=== PATIENT | female | born 1995 | race Two or more races ===

== ENCOUNTER 2023-05-11 22:21 | Emergency (ER) | payer SELFPAY ==
[2023-05-11 22:53] VITALS: BP 138/90; PULSE 106; RESP 18; TEMP 36.8; O2SAT 98; BMI 28.3
--- NOTE | 2023-05-11 23:03 | ED.GENADUL1 ---
HPI - General Adult General Chief complaint: Upper Respiratory Infection Stated complaint: ear pain Time Seen by Provider: 05/11/23 22:57 Source: patient Mode of arrival: walk-in History of Present Illness HPI narrative: 27-year-old female presents for a two day history of right ear pain. No trauma or drainage. No symptoms in her left ear and no sore throat. 4 days ago she developed some left upper quadrant pain which is now gone and it went away two days ago. No trauma or fever or vomiting or constipation. Related Data Home Medications Medication Instructions Recorded Confirmed levonorgestrel 0.15 mg-ethinyl 05/11/23 estradiol 30 mcg tablets,3 mos pack(91) (William) Previous Rx's Medication Instructions Recorded ibuprofen 800 mg tablet 800 mg PO Q8H PRN pain #20 tabs 05/11/23 sulfamethoxazole 800 1 tab PO BID 10 days #20 tabs 05/11/23 mg-trimethoprim 160 mg tablet (Bactrim DS) Allergies Allergy/AdvReac Type Severity Reaction Status Date / Time Penicillins Allergy Verified 05/11/23 22:58 Review of Systems ROS Narrative A ten point review of systems is negative except as noted above. PFSH PFSH Social History Smoking status: Never smoker Exam Narrative Exam Narrative: Nurses note and vital signs reviewed and patient is not hypoxic. General: The patient appears well and in no apparent distress. Patient is resting comfortably on cart. Skin: Warm, dry, no pallor noted. There is no rash noted. Head: Normocephalic, atraumatic Eye: Normal conjunctiva, no drainage Ears, Nose, Mouth, and Throat: oral mucosa is moist. Nares patent. no pharyngeal erythema. The left tympanic membrane an extra canal are normal. The right external canal is normal but there is some mild erythema at the superior aspect of the right tympanic membrane. Cardiovascular: Regular Rate and Rhythm Respiratory: Patient is in no distress, no accessory muscle use, lungs are clear to auscultation, no wheezing, rales or rhonchi Back: non-tender GI: soft and nontender Musculoskeletal: The patient has no evidence of calf tenderness, no pitting edema, symmetrical pulses noted bilaterally Neurological: A&O, normal speech Psychiatric: Cooperative Constitutional Vital Signs, click to edit/add: Last Vital Signs Temp 98.3 F 05/11/23 22:53 Pulse 106 H 05/11/23 22:53 Resp 18 05/11/23 22:53 BP 138/90 05/11/23 22:53 Pulse Ox 98 05/11/23 22:53 O2 Del Method Room Air 05/11/23 22:53 Course Vital Signs Vital signs: Vital Signs Temperature 98.3 F 05/11/23 22:53 Pulse Rate 106 H 05/11/23 22:53 Respiratory Rate 18 05/11/23 22:53 Blood Pressure 138/90 05/11/23 22:53 Pulse Oximetry 98 05/11/23 22:53 Oxygen Delivery Method Room Air 05/11/23 22:53 Temperature 98.3 F 05/11/23 22:53 Pulse Rate 106 H 05/11/23 22:53 Respiratory Rate 18 05/11/23 22:53 Blood Pressure 138/90 05/11/23 22:53 Pulse Oximetry 98 05/11/23 22:53 Oxygen Delivery Method Room Air 05/11/23 22:53 Medical Decision Making MDM Narrative Medical decision making narrative: my clinical impression is that the patient has otitis media. Treatment diagnosis and follow-up were discussed with the patient. Differential Diagnosis Differential Diagnosis: otitis media, otitis externa, upper respiratory infection Discharge Plan Discharge Chief Complaint: Upper Respiratory Infection Clinical Impression: Otitis media Patient Disposition: Home, Self-Care Time of Disposition Decision: 23:02 Condition: Good Mode of Transportation: Private Vehicle Prescriptions / Home Meds: New ibuprofen 800 mg tablet 800 mg PO Q8H PRN (Reason: pain) Qty: 20 0RF sulfamethoxazole-trimethoprim [Bactrim DS] 800-160 mg tablet 1 tab PO BID 10 Days Qty: 20 0RF No Action levonorgestrel-ethinyl estrad [Jolessa] 0.15 mg-30 mcg (91) tablets,dose pack,3 month Instructions: Ear Infection (ED) Stand Alone Forms: Portal Instructions Referrals: Physician,Non-Staff, MD [Primary Care Provider] - 1 week
[2023-05-11] MEDS: IBUPROFEN 400 MG TABLET 800 MG PO (23:24)
[2023-05-11] MEDS: SULFAMETHOXAZOLE/TRIMETHOPRIM 800-160 MG TABLET 1 TAB PO (23:24)
[2023-05-11 23:27] VITALS: BP 135/85; PULSE 100; RESP 16; O2SAT 100
== END 2023-05-11 23:10 | disposition home or self-care (01) ==
PROVIDERS: Emergency Provider Emergency Medicine
DX: H66.91 Otitis media, unspecified, right ear (principal); Z79.3 Long term (current) use of hormonal contraceptives
CPT/HCPCS: 99283

== ENCOUNTER 2024-04-25 17:02 | Emergency (ER) | payer MEDICAID, SELFPAY ==
[2024-04-25 17:13] VITALS: BP 116/83; PULSE 80; TEMP 37.2; O2SAT 100; BMI 33.1
--- OUTSIDE RECORDS SUMMARY | 2024-04-25 17:20 | XMS_ITS | CCD ---
Author Organization [facility] Care Team Providers Care Degreasing Solution Mixer Name Role Phone LE, CALLY Unavailable Unavailable LE, CALLY Unavailable Unavailable MISC, DOCTOR Unavailable Unavailable LE, CALLY Unavailable Unavailable Services, [facility] Primary Care Provider WINTRE VERDUGO Attending Unavailable SERVICES, [facility] Care Unapito ilable ARIANNE FARFAN Attending Unavailable SERVICES, [facility] Care Unava ilable STARR PENDLETON Attending Unavailable SERVICES, [facility] Unava ilable WINTER VERDUGO Referring Unavailable SERVICES, [facility] Care Unapito ilable STARR PENDLETON Referring Unavailable SERVICES, [facility] Primary [facility] Unava ilable Unavailable Primary Care Provider Unavailabl e WINTER VERDUGO Referring Unavailable SERVICES, [facility] Care Unava ilable ARIANNE FARFAN Attending Unavailable ARIANNE FARFAN Referring Unavailable SERVICES, [facility] Primary Care Unava ilable ARIANNE FARFAN Referring Unavailable RADHA WRIGHT Referring Unavailabl e NONE, NONE Primary Care Unavailable None, None Primary Care Provider Unavailabl e Allergies Allergy Classification Reported Allergen(s) Allergy Type Date of Onset Reaction(s) Facility (4 sources) Penicillins; Translations: [PENICILLINS] Drug allergy (disorder) 6 [facility] (7 sources) Penicillins Propensity to adverse reactions to drug 8 Rash [facility] (10 sources) valACYclovir; Translations: [VALACYCLOVIR] Drug Allergy 3 Rash [facility] Medications Current Medications Medication Drug Class(es) Dates Sig (Normalized) Sig (Original) acyclovir 0.05 mg/mg topical ointment (6 sources) Herpesvirus Nucleoside Analog DNA Polymerase Inhibitor, Herpes Simplex Virus Nucleoside Analog DNA Polymerase Inhibitor, Herpes Zoster Virus Nucleoside Analog DNA Polymerase Inhibitor Start: 08-25-2022 acyclovir (ZOVIRAX) 5 % ointment Indications: HSV (herpes simplex virus) anogenital infection Apply 1 Application topically 6 (six) times a day. 30 g 08/25/2022 Active Ethinyl Estradiol / Levonorgestrel (3 sources) Progestin, Estrogen, Progestin-containi ng Intrauterine Device Start: 05-16-2023 take 1 tablet by mouth once in the morning levonorgestreL-eth inyl estrad (JOLESSA) 0.15 mg-30 mcg (91) per tablet Indications: Contraceptive use education , Encounter for surveillance of contraceptive pills TAKE 1 TABLET BY MOUTH IN THE MORNING 91 tablet 3 05/16/2023 Active Start: 04-24-2023 End: 05-16-2023 take 1 tablet by mouth once in the morning levonorgestreL-ethinyl estrad (JOLESSA) 0.15 mg-30 mcg (91) per tablet Indications: Contraceptive use education , Encounter for surveillance of contraceptive pills TAKE 1 TABLET BY MOUTH IN THE MORNING 91 tablet 0 04/24/2023 05/16/2023 Discontinued (Reorder) fluconazole 150 mg oral tablet (1 source) Azole Antifungal Start: 05-17-2023 End: 05-17-2023 take 1 tablet by mouth once fluconazole (DIFLUCAN) 150 mg tablet Indications: Candidiasis of female genitalia Take 1 tablet (150 mg total) by mouth once for 1 dose. 1 tablet 0 05/17/2023 05/17/2023 Active nystatin [id number] unt/ml / triamcinolone acetonide 1 mg/ml topical cream (2 sources) Polyene Antifungal, Corticosteroid Start: 05-16-2023 nystatin-triamcino lone (MYCOLOG II) cream Indications: Candidosis of skin Apply 1 Application topically in the morning and 1 Application before bedtime. 30 g 0 05/16/2023 Active Vit-Fe Fumarate-FA ( 19 PO) (1 source) Vit-Fe Fumarate-FA ( 19 PO) Take by mouth Active Problems Active Problems Problem Classification Problem Date Documented Da te Episodic/Chronic Diabetes or abnormal glucose tolerance complicating ; childbirth; or the puerperium (4 sources) Impaired glucose tolerance in ; Translations: [Abnormal glucose complicating ] Onset: 03-15-2024 03-15-2024 Episodic Fever of unknown origin (1 source) Fever, unspecified; Translations: [FEVER UNSPECIFIED] Onset: 12-09-2017 Episodic Inflammatory diseases of female pelvic organs (1 source) Acute vaginitis; Translations: [ACUTE VAGINITIS] Onset: 12-09-2017 Episodic Menstrual disorders (2 sources) Amenorrhea, unspecified; Translations: [Amenorrhea] Onset: 03-25-2024 03-25-2024 Chronic Other complications of (4 sources) Maternal obesity complicating , childbirth and the puerperium, antepartum; Translations: [Obesity complicating , unspecified trimester] Onset: 02-06-2024 02-06-2024 Chronic Other complications of (3 sources) Rubella non-immune; Translations: [Supervision of other high risk pregnancies, unspecified trimester] Onset: 03-15-2024 03-15-2024 Episodic Other complications of (3 sources) Varicella non-immune; Translations: [Supervision of other high risk pregnancies, unspecified trimester] Onset: 03-15-2024 03-15-2024 Episodic Other female genital disorders (4 sources) Abnormal uterine and vaginal bleeding, unspecified; Translations: [Other specified abnormal uterine and vaginal bleeding] Onset: 12-07-2017 Chronic Other and delivery including normal (12 sources) First trimester ; Translations: [Encounter for supervision of normal , unspecified, first trimester] Onset: 02-06-2024 03-12-2024 Episodic Residual codes; unclassified (1 source) 13 weeks gestation of ; Translations: [13 weeks gestation of ] Onset: 03-25-2024 Episodic Residual codes; unclassified (1 source) Gestation period, 13 weeks; Translations: [13 weeks gestation of ] 03-25-2024 Episodic Unclassified (1 source) Initial Visit Onset: 02-06-2024 Unclassified (1 source) Annual Exam Onset: 05-16-2023 Past or Other Problems Problem Classification Problem Date Documented Date Episodic/Chronic Contraceptive and procreative management (3 sources) Oral contraception; Translations: [Encounter for surveillance of contraceptive pills] Onset: 05-16-2023 05-16-2023 Episodic Immunizations and screening for infectious disease (5 sources) Patient encounter status; Translations: [Encounter for screening for infections with a predominantly sexual mode of transmission] Onset: 05-16-2023 05-16-2023 Episodic Mood disorders (6 sources) Mood disorders Onset: 05-16-2023 05-16-2023 Mycoses (3 sources) Candidiasis of skin; Translations: [Candidiasis of skin and nail] Onset: 05-16-2023 05-16-2023 Episodic Results Test Name Value Interpretation Reference Range Facility TYPE AND SCREENon 1 05-25-2023 ABO and Rh group Nom (Bld) Blood group A Rh(D) positive [facility] Blood group antibodies identified Nom Negative [facility] Type + Scrnon 03-25 Type + Scrn Negative Normal [facility] Comment on above: Performed By: #### P RTYS #### [facility] [address] [place] [address] Sash Finisher: Tee Mcdaniel MD ACUTE HEPATITIS PANELon 10-3 ANTI HCV W/PCR REFLX Non-Reactive Normal NRCT Pr [facility] Comment on above: Result Comment: If recent infection suspected, recommend repeat testing (>2 months). Sehjpq-px-sjogqv ratio is <0.80. Performed By: #### C BC, 1504-0, 37068-4, AHP, 06249-8, 22457-1, 81811-1, 16667-8 #### [facility] ([id number]) [address] [place] [address] HEPATITIS A IGM Non-Reactive Normal NRCT [facility] Comment on above: Performed By: #### C BC, 1504-0, 27389-6, AHP, 95065-8, 43032- 5, 89618-1, 61208-5 #### [facility] ([id number]) [address] [facility] [place] [address] HEPATITIS B CORE IGM Negative Normal NEG [facility] Comment on above: Performed By: #### C BC, 1504-0, 05037-2, AHP, 37086-5, 26371- 5, 19122-1, 10313-4 #### [facility] ([id number]) [address] [address] [place] [address] HEPATITIS B SURF AG Negative Normal NEG [facility] Comment on above: Performed By: #### C BC, 1504-0, 99367-3, AHP, 41307-8, 12383- 5, 07961-2, 30807-9 #### [facility] ([id number]) [address] [address] [place] [address] COMPLETE BLOOD COUNTon 03-14 Erythrocyte distribution width (RBC) [Ratio] 13.9 % Normal 11.5-15.0 [facility] Comment on above: Performed By: #### C BC, 1504-0, 14745-0, AHP, 39137-4, 42887- 5, 40736-2, 75737-8 #### [facility] ([id number]) [address] [address] [place] [address] Hematocrit (Bld) [Volume fraction] 39.8 % Normal 35-47 [facility] Comment on above: Performed By: #### C BC, 1504-0, 44966-4, AHP, 02497-6, 81898- 5, 75868-6, 65160-2 #### [facility] ([id number]) [address] [address] [place] [address] Hemoglobin (Bld) [Mass/Vol] 14.1 g/dL Normal 11.7-15.5 [facility] Comment on above: Performed By: #### C BC, 1504-0, 93909-8, AHP, 70572-4, 51315- 5, 36745-3, 66739-9 #### [facility] ([id number]) [address], [address] [place] [address] MCH (RBC) [Entitic mass] 33.0 pg Normal 27-34 [facility] Comment on above: Performed By: #### Ora THIBODEAUX, 1504-0, 66772-1, AHP, 44388-2, 28905- 5, 38774-6, 10715-7 #### [facility] ([id number]) [address], [address] [place] [address] MCHC (RBC) [Mass/Vol] 35.3 g/dL Normal 32-36 [facility] Comment on above: Performed By: #### Ora THIBODEAUX, 1504-0, 50978-6, AHP, 80290-4, 19617- 5, 91760-7, 67774-7 #### [facility] ([id number]) [address], [address] [place] [address] MCV (RBC) [Entitic vol] 94 fL Normal 80-100 [facility] Comment on above: Performed By: #### Ora THIBODEAUX, 1504-0, 80040-8, AHP, 95624-7, 77045- 5, 72019-9, 68292-6 #### [facility] ([id number]) [address], [address] [place] [address] Platelet mean volume (Bld) [Entitic vol] 11.4 fL Normal 7-12 [facility] Comment on above: Performed By: #### Ora THIBODEAUX, 1504-0, 64768-4, AHP, 36770-4, 72458- 5, 64979-9, 02602-3 #### [facility] ([id number]) [address], [address] [place] [address] Platelets (Bld) [#/Vol] 168 10*3/uL Normal 150-450 [facility] Comment on above: Performed By: #### Ora BC, 1504-0, 76543-0, AHP, 66316-3, 69863- 5, 13414-6, 88873-2 #### [facility] ([id number]) [address], [address] [place] [address] RBC COUNT 4.26 X10E12/L Normal 3.80-5.20 [facility] Comment on above: Performed By: #### C BC, 1504-0, 82685-5, AHP, 04956-6, 87370- 5, 41219-6, 17770-3 #### [facility] ([id number]) [address], [address] [place] [address] WBC (Bld) [#/Vol] 9.9 10*3/uL Normal 4.0-11.0 [facility] Comment on above: Performed By: #### C BC, 1504-0, 98915-0, AHP, 23216-4, 68834- 5, 89396-6, 03794-6 #### [facility] ([id number]) [address], [address] [place], [place] [address] DRUG SCREEN, URINEon 024 AMPHETAMINE/METHAMP Negative Normal NEG [facility] Comment on above: Result Comment: AMPH /METH screening cut off = 1000 ng/mL Performed By: #### D LEAHY ####[facility] ([id number])[address] [address] [place] [address] BARBITURATES Negative Normal NEG [facility] Comment on above: Result Comment: Carola iturates screening cut off value = 200 ng/mL Performed By: #### D LEAHY ####[facility] ([id number])[address], [address] [place] [address] BENZODIAZEPINES Negative Normal NEG [facility] Comment on above: Result Comment: Greg odiazepines screening cut off value = 200 ng/mL Performed By: #### D LEAHY ####[facility] ([id number])[address], [address] [place] [address] CANNABINOIDS Negative Normal NEG [facility] Comment on above: Result Comment: David abinoids/THC screening cut off value = 50 ng/mL Performed By: #### D LEAHY ####[facility] ([id number])[address], [address] [address] COCAINE METABOLITE Negative Normal NEG [facility] Comment on above: Result Comment: Coca ine screening cut off value = 300 ng/mL Performed By: #### D LEAHY ####[facility] ([id number])[address], [address], [place] [address] ECSTASY Negative Normal NEG [facility] Comment on above: Result Comment: Ecst asy screening cut off value = 500 ng/mL This report is intended for use in clinical monitoring or management of patients. Performed By: #### D LEAHY ####[facility] ([id number])[address], [address], [place] [address] METHADONE Negative Normal [facility] Comment on above: Result Comment: Meth adone screening cut off value = 300 ng/mL. Performed By: #### D LEAHY ####[facility] ([id number])[address], [address], [place] [address] OPIATES Negative Normal NEG [facility] Comment on above: Result Comment: Opia jose screening cut off value = 300 ng/mL NOTE: This test is used for the detection of codeine, hydrocodone (>1000 ng/mL), morphine and hydromorphone (>900 ng/mL) in urine. Performed By: #### D LEAHY ####[facility] ([id number])[address], [address], [place] [address] OXYCODONE Negative Normal NEG [facility] Comment on above: Result Comment: Oxyc odone screening cut off value = 300 ng/mL NOTE: This test is used for the detection of oxycodone and oxymorphone in urine. Performed By: #### D LEAHY ####[facility] ([id number])[address], [address] [address] PHENCYCLIDINE Negative Normal NEG [facility] Comment on above: Result Comment: Phen cyclidine screening cut off value = 25 ng/mL Performed By: #### D LEAHY ####[facility] ([id number])[address], [place] [address] Glucose 1 Hr post 50 g gluco se PO [Mass/Vol]on 03-14-2024 GLU 1H POST 50G LOAD 136 mg/dL Normal 65-139 [facility] Comment on above: Performed By: #### C CARLOS EDUARDO, 1504-0, 85933-6, AHP, 20731-3, 23423- 5, 78153-1, 67775-9 #### [facility] ([id number]) [address] [facility], [address] [place] [address] HCG.beta subunit IA 3rd IS Q non 03-14-2024 [place] [address] m[IU]/mL Normal P [facility] Comment on above: Result Comment: NEW REFERENCE RANGE WEEKS (SINCE LMP) MIU/mL 3 WEEKS 5 - 50 4 WEEKS 5 - 426 5 WEEKS 18 - 7,340 6 WEEKS 1,080 - 56,500 7-8 WEEKS 7,650 - 229,000 9-12 WEEKS 25,700 - 288,000 13-16 WEEKS 13,300 - 254,000 17-24 WEEKS 4,060 - 165,400 25-40 WEEKS 3,640 - 117,000 MALES AND NON- FEMALES - <5 MIU/mL This test has been FDA approved for use in only. Elevated levels are not necessarily diagnostic for trophoblastic or nontrophoblastic neoplasms. Performed By: #### C BC, 1504-0, 17649-8, AHP, 50403-6, 67643-9, 13964-4, 14434-5 #### [facility] ([id number]) [address] [place] [address] HIV 1+2 Ab+HIV1 p24 Ag IA Ql on 03-14-2024 HIV 1 and 2 Ab/Ag Screen Non-Reactive Normal NRCT [facility] Comment on above: Result Comment: This information has been disclosed to you from confidential records protected from disclosure by state law. You shall make no further disclosure of this information without the specific, written and informed release of the individual to whom it pertains, or as otherwise permitted by state law. A general authorization for the release of medical or other information is not sufficient for the purpose of the release of HIV test results or diagnoses. Performed By: #### Ora , 1504-0, 53090-9, [facility], 97529-8, 96226-9, 49412-8, 23541-1 #### [facility] ([id number]) [address] [place] [address], [address] [place] [address] Rubella virus Ab Ql (S)on RUBELLA IMMUNE IgG 0.5 AI Normal [facility] Comment on above: Result Comment: Interpretation-------- <0.8 NEGATIVE-considered Not Immune 0.8-0.9 EQUIVOCAL-consider retesting with new specimen >0.9 POSITIVE-considered Immune Performed By: #### C , 1504-0, 80228-5, [facility], 46195-6, 15578-0, 09687-4, 84717-9 #### [facility] ([id number]) [address] [place] [address], [address] [place] [address] T. pallidum IgG+IgM IA Ql (S )on 03-14-2024 Syphilis Total <0.2 Normal 0.0-0.8 [facility] Comment on above: Result Comment: NON REACTIVE No serologic evidence of infection to Treponema pallidum (syphilis). Repeat testing may be considered in patients with suspected acute or primary syphilis in 2 to 4 weeks. Performed By: #### C , 1504-0, 91156-0, AHP, 26381-2, 40030-4, 80573-5, 12182-6 #### [facility] ([id number]) [address], [address] [place] [address] URINALYSISon 03-14-2024 Bilirubin Ql (U) Negative Normal NEG [facility] Comment on above: Performed By: #### U A ####[facility] ([id number])[address], [address] [place] [address] BLOOD/HGB Negative Normal NEG [facility] Comment on above: Performed By: #### U A ####[facility] ([id number])[address] [address] [place] [address] Color (U) YELLOW Normal YELLOW [facility] Comment on above: Performed By: #### U A ####[facility] ([id number])[address] [address] [place] [address] Glucose Ql (U) 1000 mg/dL Abnormal NEG [facility] Comment on above: Performed By: #### U A ####[facility] ([id number])[address] [address] [place] [address] Ketones Ql (U) 20 mg/dL Abnormal NEG [facility] Comment on above: Performed By: #### U A ####[facility] ([id number])[address] [address] [place] [address] Leukocyte esterase Test strip Ql (U) Negative Normal NEG [facility] Comment on above: Result Comment: HIGH CONCENTRATIONS OF GLUCOSE MAY DECREASE THE REACTIVITY OF THE DIPSTICK LEUKOCYTE TEST PAD. Performed By: #### U A ####[facility] ([id number])[address], [address] [place] [address] MUCOUS PRESENT Abnormal NONE [facility] Comment on above: Performed By: #### U A ####[facility] ([id number])[address] [address] [place] [address] Nitrite Ql (U) Negative Normal NEG [facility] Comment on above: Performed By: #### U A ####[facility] ([id number])[address] [address] [place] [address] pH (U) 7.0 [pH] Normal 5.0-8.5 [facility] Comment on above: Performed By: #### U A ####[facility] ([id number])[address] [facility] [address], [place] [address] Protein Ql (U) Trace Abnormal NEG [facility] Comment on above: Performed By: #### U A ####[facility] ([id number])[address] [address] [place] [address], [place] [address] R.B.CELLS 1 /hpf Normal 0-5 [facility] Comment on above: Performed By: #### U A ####[facility] ([id number])[address] [address], [place] [address] Specific gravity (U) [Rel density] 1.027 Normal 1.003-1.035 [facility] Comment on above: Performed By: #### U A ####[facility] ([id number])[address] [address], [place] [address] SQUAMOUS EPITHELIUM 1 /hpf Normal 0-5 [facility] Comment on above: Performed By: #### U A ####[facility] ([id number])[address] [address] [place] [address] TURBIDITY CLEAR Normal CLEAR [facility] Comment on above: Performed By: #### U A ####[facility] ([id number])[address] [address] Urobilinogen (U) [Mass/Vol] mg/dL Normal <1.1 [facility] Comment on above: Performed By: #### U A ####[facility] ([id number])[address] [address] W.B.CELLS 1 /hpf Normal 0-5 [facility] Comment on above: Performed By: #### U A ####[facility] ([id number])[address] [address] URINE CULTUREon 03-14-2024 Bacteria identified Cx Nom (U) CULTURE RESULTS <10,000 ORGANISMS/ML NORMAL URO GENITAL SAY Normal [facility] Comment on above: Performed By: #### 6 30-4 ####[facility] ([id number])[facility] [address] [address] VZV IgG IA Ql (S)on 03-14-20 24 VARICELLA IgG 0.3 AI Normal <0.9 [facility] Comment on above: Result Comment: Interpretation-------- <0.9 Negative 0.9 - 1.0 Equivocal >1.0 Positive Performed By: #### C , 1504-0, 39117-8, [facility], 54328-7, 92588-3, 82816-7, 98900-8 ####[facility] ([id number])[address] [address] CHLAMYDIA/GC BY PCRon 2023 CHLAMYDIA/GC BY PCR SPECIMEN SOURCE CERVIX CHLAMYDIA DNA(PCR) Negative (qualifier value) Chlamydia trachomatis not detected by nucleic acid amplification. This does not exclude the possibility of infection because results are dependent on adequate specimen collection. GONORRHOEAE DNA(PCR) Negative (qualifier value) Neisseria gonorrhoeae not detected by nucleic acid amplification. This does not exclude the possibility of infection because results are dependent on adequate specimen collection. Normal [facility] Comment on above: Performed By: #### C GS #### [facility] ([id number]) [address] [facility], [address] [place] [address] US PREG LESS THAN 14 WKS WIT H TRANSVAGINALon 03-01-2024 US PREG LESS THAN 14 WKS WITH TRANSVAGINAL US PREG LESS THAN 14 WKS WITH TRANSVAGINAL US PREG LESS THAN 14 WKS WITH TRANSVAGINAL: 03/01/2024 9:58 AM Clinical: Check dates and viability. Real-time transabdominal and transvaginal sonography pelvis performed.. No comparison. There is a twin intrauterine with a thin membrane with 2 yolk sacs and 2 embryonic poles. Fetus a: Foristell-rump length of 2.7 cm corresponds to 9 week 4 day gestation. Cardiac activity 1 85 bpm. Fetus B: Foristell-rump length of 3.1 cm, 10 weeks 0 day. Cardiac activity 1 68 bpm. Amount amniotic fluid is normal. Placenta not well seen due to early gestational age. Maternal ovaries are unremarkable. No cul-de-sac fluid seen. Impression: * Twin intrauterine 9 week 4 day at 10 week 0 day gestation with cardiac activity and thin membrane. Finalized by Reilly Barrera MD on 03/01/2024 10:50 AM Normal [facility] CHLAMYDIA/GC PCR, FLon 05-16 CHLAMYDIA/GC PCR, FL SPECIMEN SOURCE ThinPrep CHLAMYDIA DNA(PCR) Negative (qualifier value) Chlamydia trachomatis not detected by nucleic acid amplification. This does not exclude the possibility of infection because results are dependent on adequate specimen collection. GONORRHOEAE DNA(PCR) Negative (qualifier value) Neisseria gonorrhoeae not detected by nucleic acid amplification. This does not exclude the possibility of infection because results are dependent on adequate specimen collection. Normal [facility] Comment on above: Performed By: #### C GT #### [facility] ([id number]) [address] [facility] FIRST FLOOR [place], [place] [address] [place] [address] LAB ([id number]) [address] [place] [address], [address] [place] [address] Cytologyon 05-16-2023 Cytology Normal [facility] Comment on above: Result Comment: [facility] [address] [place] [address] Gynecologic Cytology Consultation Patient Name:MELI ALVAREZ:1995 (Age: 27)Gender:FTaken:4Reported:4Physician(s):Winter Verdugo DO ([phone])Copy To: Rec. #:[id number]: #[id number] Final Cytologic Interpretation ThinPrep Pap Test (Cervical): Satisfactory for evaluation. A transformazion zone component is not identified via imaging-assisted review, using [employer] Thin Prep Imaging System, within 22 microscopic sampson of vew. NEGATIVE FOR INTRAEPITHELIAL LESION OR MALIGNANCY. gb/05/20/2023 Interpretation performed at [facility], [address] [place] [address], License number: [id number]. Electronically Signed Out By Simba MALDONADO (ASCP) Date of Last Menstrual Period: 04/14/23 Other Clinical Conditions: Oral contraceptive Z01.419 Technical Service Specialist exam wo/abn findings Z11.3 Encntr screen for infections w sexl mode of transmiss Source of Specimen ThinPrep Pap Test (Cervical) Thin Prep Pap (MULTIMEDIA SERVICES MANAGER) Fee Code(s): G0145 VAGINITIS PANEL PCRon 2023 VAGINITIS PANEL PCR BACT. VAGINOSIS DNA Not detected (qualifier value) Qualitative results are reported based on detection and quantitation of targeted organism markers which include: Lactobacillus spp. (L. crispatus and L. jensenii), Gardnerella vaginalis, Atopobium vaginae, Bacterial Vaginosis Associated Bacteria-2 (BVAB-2) and Megasphaera-1 JOHANA SPECIES DNA Detected (qualifier value) Johana species result based on detection of one or more of the following species: C. albicans, C. tropicalis, C. parapsilosis or C. dubliniensis JOHANA KRUSEI DNA Not detected (qualifier value) No Johana krusei detected JOHANA GLABRATA DNA Not detected (qualifier value) No Johana glabrata detected TRICHOMONAS VAG DNA Not detected (qualifier value) No Trichomonas vaginalis detected NOTE BD MAX Vaginal Panel has not been evaluated for patients under 18 years old. Results for these patients should be reviewed and assessed in accordance with clinical presentation to determine patient diagnosis. Normal [facility] Comment on above: Performed By: #### V PPCR #### [facility] ([id number]) [address] [facility] [address] [place] [address] CHLAMYDIA/GONOCOCCUS ANNE MARIE W/C ONF. (SWAB/Uon 12-10-2017 Chlamydia Trach ANNE MARIE Negative Normal Negative [facility] Comment on above: Performed By: #### C T/NGNA ####[facility] Iulwsvwvbm6033 [address] [place] N. Gonorrhoeae ANNE MARIE Negative Normal Negative [facility] Comment on above: Performed By: #### C T/NGNA ####[facility] Sgyqdemxkr1384 [address] [place] ER URINE PROFILEon 8 BILIRUBIN Negative Normal NEGATIVE [facility] Comment on above: Performed By: #### LINDA AHMADI ####[facility] Vytymlofan1908 [address] [place] BLOOD MODERATE Normal NEGATIVE [facility] Comment on above: Performed By: #### LINDA AHMADI ####[facility] Stulqabxzy1823 [address] [place] CLARITY CLEAR Normal [facility] Comment on above: Performed By: #### LINDA AHMADI ####[facility] Kjruqghkpd7045 [address] [place] COLOR LT. YELLOW Normal YELLOW [facility] Comment on above: Performed By: #### LINDA AHMADI ####[facility] Evcwuulngq7210 [address] [place] ERUAHD A micrscopic examination will be performed if indicated. Normal [facility] Comment on above: Performed By: #### LINDA AHMADI ####[facility] Bnjnykqoed5272 [address] [place] GLUCOSE Negative Normal NEGATIVE [facility] Comment on above: Performed By: #### MEGAN AHMADIRO ####[facility] Klbmqskauw3131 [address] [place] KETONES 15 mg/dl Normal NEGATIVE [facility] Comment on above: Performed By: #### MEGAN AHMADIRO ####[facility] Vhdclemriz5739 [address] [place] LEUKOCYTES Negative Normal NEGATIVE [facility] Comment on above: Performed By: #### MEGAN AHMADIRO ####[facility] Oiemzwxaku6227 [address] [place] NITRITE Negative Normal NEGATIVE [facility] Comment on above: Performed By: #### MEGAN AHMADIRO ####[facility] Nmoipswnci2092 [address] [place] pH 6.0 Normal 5-9 [facility] Comment on above: Performed By: #### MEGAN AHMADIRO ####[facility] Emlouepwkf3824 [address] [place] Protein mass conc Negative Normal [facility] Comment on above: Performed By: #### MEGAN AHMADIRO ####[facility] Hfmtmtrxus1028 [address] [place] SPEC GRAVITY 1.020 Normal 1.005-<=1.025 The [facility] Comment on above: Performed By: #### MEGAN AHMADIRO ####[facility] Qclwxxctuc8045 [address] [place] UR MICRO IND INDICATED Normal [facility] Comment on above: Performed By: #### MEGAN AHMADIRO ####[facility] Omsldukygc3057 [address] [place] UROBILINOGEN 0.2 EU/dl Normal [facility] Comment on above: Performed By: #### MEGAN AHMADIRO ####[facility] Rwxfooyscb7057 [place] [id number] URon 12-07-2017 , QUAL Negative Normal NEGATIVE [facility] Comment on above: Performed By: #### P REGU ####[facility] Hmrxouflfo4458 [place] [id number] URINE MICROSCOPIC ONLYon BACTERIA NONE SEEN Normal NONE SEEN The [facility] Comment on above: Performed By: #### MEGAN AHMADIRO ####[facility] Qrzglccens3002 [address] [place] CAST NONE SEEN Normal NONE SEEN The [facility] Comment on above: Performed By: #### MEGAN AHMADIRO ####[facility] Wsqnkcwnhs4145 [address] [place] CRYSTALS NONE SEEN Normal NONE SEEN The [facility] Comment on above: Performed By: #### MEGAN AHMADIRO ####[facility] Iwpmwhtxcx5545 [address] [place] CULTURE NOT INDICATED Normal [facility] Comment on above: Performed By: #### GABRIELA AHMADIICRO ####[facility] Aznlkocakv5811 [place] [id number] EPITHELIAL CELLS RARE Normal The [facility] Comment on above: Performed By: #### GABRIELA AHMADIICRO ####[facility] Fmoaedrxej1316 [place] [id number] INR Coag RelTime (Bld) NONE SEEN Normal 0-2 [facility] Comment on above: Performed By: #### MEGAN AHMADIRO ####[facility] Ffhtbnwgya8732 [place] [id number] MUCOUS NONE SEEN Normal NONE SEEN The [facility] Comment on above: Performed By: #### MEGAN AHMADIRO ####[facility] Ijwdepbcoz8853 [place] [id number] WBC NONE SEEN Normal NONE SEEN The [facility] Comment on above: Performed By: #### E LINDA FLOWERS ####[facility] P[address] [place] [address]Qubceg [place] WET PREPon 12-07-2017 CLUE CELLS SEEN Normal NONE SEEN The [facility] Comment on above: Performed By: #### W P ####[facility] Uzfrozhw[address] [place], [place] [address] [place] FUNGAL ELEMENTS NONE SEEN Normal NONE SEEN The [facility] Comment on above: Performed By: #### W P ####[facility] [address] [place] [address] [place] RBC Auto #/vol (Bld) NONE SEEN Normal NONE SEEN The [facility] Comment on above: Performed By: #### W P ####[facility] [address] [place], [place] [address] TRICHOMONAS NONE SEEN Normal NONE SEEN The [facility] Comment on above: Performed By: #### W P ####[facility] O[address]ss[address]dfja[address] [place], [place] [address] WBC Auto #/vol (Bld) NONE SEEN Normal NONE SEEN The [facility] Comment on above: Performed By: #### W P ####[facility] Y[address] [place], [place] [address] WET PREP BACTERIA NONE SEEN Normal NONE SEEN The [facility] Comment on above: Performed By: #### W P ####[facility] Y[address]fl[address] [place], [place] [address] Vital Signs Date Time Vital Sign Value Performing Clinician Faci lity 03-12-2024 09:42-0400 Body mass index (BMI) [Ratio] 33.37 kg/m2 Starr [place] MD Work Phone: [facility] 03-12-2024 09:42-0400 Body weight 85.46 kg Starr [place] MD Work Phone: [facility] 03-12-2024 09:42-0400 Diastolic blood pressure 64 mm[Hg] Starr [place] MD Work Phone: [employer] 03-12-2024 09:42-0400 Systolic blood pressure 118 mm[Hg] Starr [place] MD Work Phone: [employer] 05-16-2023 11:43-0500 Body height 160 cm Winter Verdugo DO Work Phone: [employer] 05-16-2023 11:43-0500 Body mass index (BMI) [Ratio] 32.1 kg/m2 Winter Verdugo DO Work Phone: [employer] 05-16-2023 11:43-0500 Body weight 82.19 kg Winter Verdugo DO Work Phone: [employer] 05-16-2023 11:43-0500 Diastolic blood pressure 80 mm[Hg] Winter Verdugo DO Work Phone: [employer] 05-16-2023 11:43-0500 Systolic blood pressure 116 mm[Hg] Winter Verdugo DO Work Phone: [employer] Encounters Encounter Date Encounter Type Care Provider Facility Start: 04-08-2024 End: 04-08-2024 Telephone encounter Arianne Farfan WELFARE VISITOR-VETERINARY PRACTICE MANAGER Work Phone: [facility] Start: 03-25-2024 End: 03-25-2024 ambulatory RADHA WRIGHT [facility] Start: 03-25-2024 End: 03-25-2024 Subsequent hospital visit by physician None None [facility] Comment on above: Encounter for superv ision of normal first in first trimester; Amenorrhea; 13 weeks gestation of Start: 03-21-2024 End: 03-21-2024 Telephone encounter Dona Hodge WELFARE VISITOR-VETERINARY PRACTICE MANAGER Work Phone: [facility] Start: 03-15-2024 End: 03-15-2024 Orders Only Dona Hodge WELFARE VISITOR-VETERINARY PRACTICE MANAGER Work Phone: [facility] Comment on above: Impaired glucose noé erance during (Primary Dx) Start: 03-14-2024 End: 03-14-2024 ambulatory [facility] Start: 03-12-2024 End: 03-12-2024 ambulatory [facility] Start: 03-12-2024 End: 03-12-2024 ambulatory [facility] Start: 03-12-2024 End: 03-12-2024 Office outpatient visit 25 minutes Starr [place] MD Work Phone: [facility] Comment on above: GA: 11w6d Start: 03-01-2024 End: 03-01-2024 [facility] Start: 02-06-2024 End: 02-06-2024 ambulatory [facility] Start: 05-17-2023 Orders Only Winter Verdugo DO Work Phone: [facility] Comment on above: Candidiasis of femal e genitalia (Primary Dx) Start: 05-16-2023 End: 05-16-2023 ambulatory [facility] Start: 05-16-2023 End: 05-16-2023 [facility] Start: 05-16-2023 End: 05-16-2023 Encounter for gynecological examination (general) (routine) without abnormal findings Winter Verdugo DO Work Phone: [facility] Start: 05-16-2023 End: 05-16-2023 Periodic preventive med est patient 18-39 yrs Winter Verdugo DO Work Phone: [facility] Comment on above: Cervical smear, as p art of routine gynecological examination (Primary Dx); Contraceptive use education; Encounter for surveillance of contraceptive pills; Screening for STD (sexually transmitted disease); Candidosis of skin Start: 05-16-2023 End: 05-16-2023 ambulatory [facility] Start: 05-16-2023 Encounter for gynecological examination (general) (routine) without abnormal findings WINTER VERDUGO [facility] Start: 12-07-2017 End: 12-07-2017 Patient encounter CALLY CONN Facility:H1 Procedures Date Procedure Procedure Detail Performing Clinician Start: 03-25-2024 Blood typing serologic abo Radha Wright WELFARE VISITOR - CNM Work Phone: Start: 05-16-2023 Adult depression scr eening assessment Winter Verdugo DO Work Phone: Start: 05-16-2023 Microscopic observat ion [Identifier] in Cervix by Cyto stain Starr [place] MD Work Phone: Start: 04-03-2020 Microscopic observat ion [Identifier] in Cervix by Cyto stain Winter Verdugo DO Work Phone: Plan of Treatment Date Care Activity Detail Author Start: 05-16-2026 Screening for malign ant neoplasm of cervix Pap Smear [facility] Start: 03-12-2025 Adult BMI Screening Adult BMI Screen ing [facility] Start: 03-12-2025 Tobacco Screening Tobacco Screening [facility] Start: 07-22-2024 End: 07-22-2024 Patient encounter procedure 07/22/2024 10:00 AM EDT Routine [address] [place] [address] Radha Wright, WELFARE VISITOR - CNM [address] [place] [address] [address] [place], [place] [id number] CHRISTIN 09/25 [facility] Comment on above: CHRISTIN 09/25 Start: 07-22-2024 End: 07-22-2024 Professional / ancillary services management 07/22/2024 9:00 AM EDT Ancillary Procedure [address] [place], [place] [id number] CHRISTIN 09/25 [facility] Comment on above: CHRISTIN 09/25 Start: 05-16-2024 End: 05-16-2024 Patient encounter procedure 05/16/2024 2:30 PM EST Routine [facility] [address] [place] [address] Radha Wright APRN - DEJUAN [address] [address] [address] [place] [address] OB 20 wk US TWINS [facility] Comment on above: OB 20 wk US TWINS Start: 05-16-2024 Adult BMI Screening Adult BMI Screen ing [facility] Start: 05-16-2024 Depression Screening Depression Scre ening [facility] Start: 05-16-2024 Tobacco Screening Tobacco Screening [facility] Start: 05-16-2024 End: 05-16-2024 Professional / ancillary services management 05/16/2024 1:00 PM EST Ancillary Procedure [facility] Part [address] [place] [address] OB 20 wk US TWINS [facility] Comment on above: OB 20 wk US TWINS Start: 04-15-2024 End: 04-15-2024 Patient encounter procedure 04/15/2024 1:40 PM EST Routine [facility] [address] [place] [address] Radha Wright, TYREE - DEJUAN [address] [place] [address] [address] [place] [address] OB/ US for FHT Twins. [facility] Comment on above: OB/ US for FHT Twins . Start: 04-15-2024 End: 04-15-2024 Professional / ancillary services management 04/15/2024 1:00 PM EST Ancillary Procedure [facility] [address] [place], [place] [id number] OB/ US for FHT Twins. [facility] Comment on above: OB/ US for FHT Twins . Start: 04-05-2024 End: 04-05-2024 Patient encounter procedure 04/05/2024 8:00 AM EST Routine [facility] [address] [place] [id number] Arianne Farfan, WELFARE VISITOR-VETERINARY PRACTICE MANAGER [address] [facility] [place] [address] [facility] Start: 01-14-2024 COVID-19 Vaccine ( season) COVID-19 Vaccine () [facility] Start: 01-14-2024 Influenza vaccination Influenza Vacc ine [facility] Start: 12-14-2023 Influenza vaccination Flu vaccine (# 1) [facility] Start: 05-16-2023 End: 05-16-2024 Cytopathology procedure, preparation of smear, genital source Pap Smear Pathology and Cytology Routine Cervical smear, as part of routine gynecological examination Expected: 05/16/2023 (Approximate), Expires: 05/16/2024 [facility] Work Phone: Comment on above: Expected: 05/16/2023 (Approximate), Expires: 05/16/2024 Start: 05-16-2023 End: 05-16-2024 Vaginitis Panel PCR Vaginitis Panel PCR Microbiology Routine Screening for STD (sexually transmitted disease) Expected: 05/16/2023 (Approximate), Expires: 05/16/2024 [facility] Comment on above: Expected: 05/16/2023 (Approximate), Expires: 05/16/2024 Start: 04-03-2023 Screening for malign ant neoplasm of cervix Pap Smear [facility] Start: 01-13-2023 Influenza vaccination Influenza Vacc ine [facility] Start: 03-30-2020 DTaP,Tdap and Td Vaccines (7 - Td or Tdap) DTaP,Tdap and Td Vaccines (7 - Td or Tdap) [facility] Start: 2018 Screening for malign ant neoplasm of cervix Pap smear [facility] Start: 2016 DTaP/Tdap/Td vaccine (1 - Tdap) DTaP/Tdap/Td vaccine (1 - Tdap) [facility] Start: 2016 Hepatitis B vaccine (1 of 3 - 19+ 3-dose series) Hepatitis B vaccine (1 of 3 - 19+ 3-dose series) [facility] Start: 11-22-2015 Adult BMI Follow Up Plan Adult BMI Follow Up Plan [facility] Start: 11-22-2015 Hepatitis C screening Hepatitis C sc reen [facility] Start: 2012 HIV screening HIV screen [facility] Start: 2012 HPV vaccine (1 - 3-d ose series) HPV vaccine (1 - 3-dose series) [facility] Start: 2010 Varicella vaccine (1 of 2 - 13+ 2-dose series) Varicella vaccine (1 of 2 - 13+ 2-dose series) [facility] Start: 2009 Depression Screen Depression Screen [facility] End: 03-15-2025 2nd hr Glucose Tolerance 100 gm load 2nd hr Glucose Tolerance 100 gm load Lab Routine Impaired glucose tolerance during 1 Occurrences starting 03/15/2024 until 03/15/2025 [facility] Comment on above: 1 Occurrences starti ng 03/15/2024 until 03/15/2025 End: 03-12-2025 Chlamydia/GC by PCR [facility] Chlamydia/GC by PCR [facility] Microbiology Routine care in first trimester 1 Occurrences starting 03/12/2024 until 03/12/2025 [facility]: Comment on above: 1 Occurrences starti ng 03/12/2024 until 03/12/2025 Chlamydia/GC by PCR [facility] Chlamydia/GC by PCR [facility] Microbiology Routine care in first trimester 03/12/2024 6:25 PM EDT [facility] End: 05-16-2024 Chlamydia/GC by PCR ThinPrep fluid Chlamydia/GC by PCR ThinPrep fluid Microbiology Routine Screening for STD (sexually transmitted disease) 1 Occurrences starting 05/16/2023 until 05/16/2024 [facility] Comment on above: 1 Occurrences starti ng 05/16/2023 until 05/16/2024 End: 03-15-2025 Glucose tolerance, 1 hour Glucose tolerance, 1 hour Lab Routine Impaired glucose tolerance during 1 Occurrences starting 03/15/2024 until 03/15/2025 [facility] on above: 1 Occurrences starti ng 03/15/2024 until 03/15/2025 End: 03-15-2025 Glucose tolerance, 3 hours Glucose tolerance, 3 hours Lab Routine Impaired glucose tolerance during 1 Occurrences starting 03/15/2024 until 03/15/2025 [facility] Comment on above: 1 Occurrences starti ng 03/15/2024 until 03/15/2025 End: 03-15-2025 Glucose, fasting Glucose, fasting Lab Routine Impaired glucose tolerance during 1 Occurrences starting 03/15/2024 until 03/15/2025 [employer] Work Phone: Comment on above: 1 Occurrences starti ng 03/15/2024 until 03/15/2025 Immunizations Immunization Date Immunization Notes Care Provider Polly veliz 03-16-2009 influenza virus vaccine, unspecified formulation Winter Verdugo DO Work Phone: [facility] Payers Date Payer Category Payer Medicaid [id number] 2024 Medicaid [id number] 1997 Unknown [id number] 2.16.8 [id number] 1997 Unknown [id number] 2.16.8 [id number] 1997 Unknown [id number] 2.16.84 [id number] 1997 Unknown [id number] 2.16.8 [id number] 1997 Unknown [id number] 2.16.8 [id number] 1997 Unknown [id number] 2.16.8 [id number] 1997 Unknown [id number] 2.16.8 [id number] 1959 Unknown [id number] Social History Date Type Detail Facility Start: 04-26-2022 End: 03-25-2024 Tobacco smoking status NHIS Never smoked tobacco [facility] Start: 04-26-2022 End: 03-25-2024 Tobacco use and exposure Smokeless tobacco non-user [facility] Start: 05-16-2023 Alcohol intake Current drinke r of alcohol (finding) [facility] Start: 06-25-2020 End: 05-16-2023 History of Social function [facility] Start: 06-25-2020 End: 05-16-2023 Tobacco use panel [facility] Adolescent depressio n screening assessment 9 [facility] Start: 04-26-2022 Alcohol Comment occasional [facility] Start: 1995 Sex Assigned At Not on file [facility] Start: 03-12-2024 End: 03-25-2024 Alcoholic beverage intake Ex-drinker (finding) [facility] Start: 01-03-2024 [facility] Start: 12-18-2014 Sex Female (finding) [facility] Clinical Notes 05-16-2023 to 04-08-2024 Telephone Encounter - Ashleigh Terrazas - 04/08/2024 4:24 PM ESTTelephone Encounter - Ashleigh Terrazas - 04/08/2024 4:24 PM ESTTelephone Encounter - Ashleigh Terrazas - 03/21/2024 1:33 PM EST Note Date & Type Note Facility 04-08-2024 Miscellaneous Notes Formattin g of this note might be different from the original. Called Pt to reschedule missed appt on 04/05/24. No answer, left VM. documented in this encounter [facility] 04-08-2024 Telephone encount er Note Called Pt to reschedule missed appt on 04/05/24. No answer, left VM. [facility] 03-21-2024 Miscellaneous Notes Formattin g of this note might be different from the original. Patient states she went to Urgent Care yesterday (03/20/24) due to feeling shaky and lightheaded. Per Joy Arce LPN, advised Patient this is normal & she does not need to be seen at this time. documented in this encounter [facility] 03-21-2024 Telephone encount er Note Patient states she went to Urgent Care yesterday (03/20/24) due to feeling shaky and lightheaded. Per Joy Arce LPN, advised Patient this is normal & she does not need to be seen at this time. [facility] 03-12-2024 History of Presen t illness Narrative History: Pt is 11w6d. This is her initial OB visit and is with twins. 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 No overview and plan has been documented for this . Physical exam: BP 118/64 Wt 85.5 kg (188 lb 6.4 oz) LMP 12/20/2023 Comment: Every 3 months BMI 33.37 kg/m Pt has a gynecoid pelvis. Assessment/Plan: Discussed getting initial lab work and the pt was agreeable to POC. Advised the pt to keep the weight gain under 20-30lbs during the length of her . Advised the pt to get a flu shot during cold/flu season. Multiple questions asked and answered. Advised the pt to avoid any heavy lifting greater than 10-15lbs during her and discussed childcare plans with her after she delivers. Ariane De Los Santos 03/12/24 1003 documented in this encounter [facility] 05-16-2023 History of Presen t illness Narrative Subjective Patient ID: Meli Alvarez is a pleasant 27 y.o. female who presents today for her annual well-woman exam. Her last Pap smear was in 2019, so she is due today. She would like an STD screen. She is sexually active with 1 partner. She did recently get , so is no longer using condoms. She is taking OCPs and is happy with those. She would like a refill. She denies family history of breast, uterine, or ovarian cancer. 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 Chief Complaint: Well-woman exam, desires STD screening control refill Menstrual History: OB History 0 Para 0 Term 0 0 AB 0 Living 0 SAB 0 IAB 0 Ectopic 0 Multiple 0 Live Births 0 Patient's last menstrual period was 04/14/2023 (approximate). The following portions of the patient's history were reviewed and updated as appropriate: allergies, current medications, past family history, past medical history, past social history, past surgical history, problem list, and medication reconciliation was completed including current medication and post discharge medication. Review of Systems Constitutional: negative Respiratory: negative Cardiovascular: negative Gastrointestinal: negative Genitourinary:negative Integument/breast: negative Hematologic/lymphatic: negative Musculoskeletal:negative Neurological: negative Behavioral/Psych: negative Endocrine: negative Objective BP 116/80 Ht 160 cm (5' 3 ) Wt 82.2 kg (181 lb 3.2 oz) LMP 04/14/2023 (Approximate) Comment: Every 3 months BMI 32.10 kg/m General: alert, appears stated age, and cooperative Heart: regular rate and rhythm, S1, S2 normal, no murmur, click, rub or gallop Lungs: clear to auscultation bilaterally Abdomen: soft, non-tender, without masses or organomegaly Vulva: normal Vagina: normal mucosa, no palpable nodules, whitish discharge noted V nap collected Cervix: anteverted, no cervical motion tenderness, no lesions, and nulliparous appearance Uterus: mobile, non-tender, normal shape and consistency, retroverted Adnexa: no mass, fullness, tenderness Breast: Symmetrical in appearance with no palpable nodules the is erythematous satellite lesions under bilateral breasts consistent with cutaneous candidiasis Assessment 1. Cervical smear, as part of routine gynecological examination 2. Contraceptive use education 3. Encounter for surveillance of contraceptive pills 4. Screening for STD (sexually transmitted disease) 5. Candidosis of skin 6. Vaginal discharge Plan 1. Pap smear and V nap collected STD screens will be performed will contact patient with results 2. Refill on OCPs provided 3. Prescription for Mycolog provided for cutaneous candidiasis patient instructed on use documented in this encounter [facility] Evaluation note Diagnosis Cervical smear, as part of routine gynecological examination- Primary Screening for malignant neoplasm of the cervix Contraceptive use education Unspecified contraceptive management Encounter for surveillance of contraceptive pills Screening for STD (sexually transmitted disease) Candidosis of skin Candidiasis of skin and nails [facility] Diagnosis Candidiasis of female genitalia- Primary Candidiasis of vulva and vagina [facility] Diagnosis First trimester - Primary state, incidental care in first trimester [facility] Diagnosis Impaired glucose tolerance during - Primary [facility] Diagnosis Encounter for supervision of normal first in first trimester Supervision of normal first Amenorrhea Absence of menstruation 13 weeks gestation of state, incidental [facility] Summary Purpose Family History No Family History Records FoundNo Family History Records FoundNo Family History Records FoundNo Family History Records FoundNo Family History Records Found Advance Directives No Advanced Directives Records FoundNo Advanced Directives Records FoundNo Advanced Directives Records FoundNo Advanced Directives Records FoundNo Advanced Directives Records Found Additional Source Comments INFORMATION SOURCE (unrecogn ized section and content) DATE CREATED AUTHOR 01/07/2018 [facility] DATE CREATED AUTHOR AUTHOR'S ORGANIZ ATION 03/13/2024 [facility] DATE CREATED AUTHOR AUTHOR'S ORGANIZ ATION 03/14/2024 [facility] DATE CREATED AUTHOR AUTHOR'S ORGANIZ ATION 03/16/2024 [facility] DATE CREATED AUTHOR AUTHOR'S ORGANIZ ATION 03/26/2024 Yuridia denton Reason for Visit (unrecogniz ed section and content) Reason Comments Annual Exam Pap: 04/03/20- NegBC : OCPsDesires STD testingPHQ-9: 9 Reason Comments Initial Visit Care Teams (unrecognized sec tion and content) [employer] Mixer Relationship Specialty Start Date End Date Services, [facility] [address] [place] PCP - General Family Medicine 12/14/17 [employer]er Relationship Specialty Start Date End Date Services, [facility] [address] [place] PCP - [facility] Medicine 12/14/17 Deg[employer] Solution Mixer Relationship Specialty Start Date End Date Services, [facility] [address] [place] PCP - [facility] Family Medicine 12/14/17 Degreasing Solution Mixer Relationship Specialty Start Date End Date None, None PCP - General 03/25/24 FOR RECORDS PERTAINING TO PATIENTS WHO ARE OR HAVE BEEN ENROLLED IN A CHEMICAL DEPENDENCY/SUBSTANCEABUSE PROGRAM, SOME INFORMATION MAY BE OMITTED. This clinical summary was aggregated from multiple sources. Caution should be exercised in using it in the provision of clinical care. This summary normalizes information from multiple sources, and as a consequence, information in this document may materially change the coding, format and clinical context of patient data. In addition, data may be omitted in some cases. CLINICAL DECISIONS SHOULD BE BASED ON THE PRIMARY CLINICAL RECORDS. [facility] RV ID [facility]. provides no warranty or guarantee of the accuracy or completeness of information in this document.
--- NOTE | 2024-04-25 17:31 | PC.NURSE ---
Fall earlier in day landing on back, having pain to mid back, no redness, bruising or any skin area noted.
--- NOTE | 2024-04-25 17:33 | US_ITS ---
[address] [address] Patient Name: MELI ALVAREZ MRN: [id number] date: 1995 Sex: F Assigned Patient Location: ER Current Patient Location: ED.MAIN Accession/Order Number: [id number] Exam Date: 04/25/2024 18:06 Report Date: 04/25/2024 21:40 At the request of: CHANDRA JONES Procedure: US OB >= 14 weeks Fetus US PELVIS: OB LESS THAN 14 WEEKS HISTORY: 28-year-old female who is who fell. Patient is with twins. presents for US evaluation. TECHNIQUE: Multiple sonographic images are performed of the pelvis using grayscale and color Doppler with both transabdominal and transvaginal probes. COMPARISON: None. FINDINGS: UTERUS: Gravid with twin . Amniotic membrane visualized. FETUS A: Position: Transverse head maternal right Heart Rate: 151 bpm. Measurements: BPD: 4.1 cm = 18 weeks, 2 days. HC: 14.9 cm = 18 weeks, 0 days. AC: 12.0 cm =17 weeks, 5 days. FL: 2.6 cm = 17 weeks, 6 days. Estimated weight: 212 g +/- 30 1.8 g. (7 ounces +/- 1 ounce) 35% FETUS B: Position: Transverse head maternal left. Heart Rate: 152 bpm. Measurements: BPD: 4.1 cm = 18 weeks, 3 days. HC: 15.1 cm = 18 weeks, 1 days. AC: 13.0 cm =18 weeks, 4 days. FL: 2.5 cm = 17 weeks, 4 days. Estimated weight: 225 g +/- 33.7 g (8 ounces +/- 1 ounce) 53% MATERNAL: Ovaries: Not visualized due to bowel gas and gravid uterus. VANESSA: Within normal limits. Free fluid: None. US/US OB >= 14 weeks Fetus IMPRESSION: 1. Viable Twin fetus IUP Twin A: 2. AUA Estimated Gestational Age by US: 18 weeks 0 days +/- 1 week 2 days by ultrasound. 3. Estimated due date by AUA: September 26, 2024. These values correlate with the previously determined dating parameters. 4. Estimated weight 212 g approximately 35% Twin B: 2. AUA Estimated Gestational Age by US: 18 weeks 1 day +/- 1 week 2 days. by ultrasound. 3. Estimated due date by AUA: 09/25/2024. These values correlate with the previously determined dating parameters 4. Estimated weight 225 g approximately 53% Electronically authenticated by: TANNER GARSIA Date: 04/25/2024 21:40
--- NOTE | 2024-04-25 17:40 | ED.GENADUL1 ---
HPI HPI - General Adult General Chief complaint: Back Pain/Injury Stated complaint: FALL W/BACK PAIN, 18 WKS Time Seen by Provider: 04/25/24 17:23 Source: patient Mode of arrival: walk-in Limitations: no limitations History of Present Illness HPI narrative: 28-year-old female presents to the emergency department with complaint of back pain. This morning, slipped and fell, landing on her back while getting into her 's car. States did not have any discomfort in her back till several hours later. Patient states that she is with twins at about 18 weeks. She also expresses concern because she feels, a bubbly feeling, in her abdomen. Denies any drew, cramping, vaginal bleeding. Denies any loss of bowel or bladder control, radiation of the pain down her legs, motor or sensory changes, paresthesias past back problems. Quality:?As above Severity:?Mild. Patient states that the pain is tolerable at this point Timing:?As above Context: Normal setting and activity? Modifying factors:?Pain worse with palpation or movement Associated symptoms: None Related Data Previous Rx's ?Medication ?Instructions ?Recorded lidocaine 5 % topical patch 1 patch topical DAILY #15 ea 04/25/24 (Lidoderm) Allergies Allergy/AdvReac Type Severity Reaction Status Date / Time Penicillins Allergy Unknown Verified 04/25/24 17:17 Opioid HPI Opioid Management Most Recent Opioid Data: No Data to Display Review of Systems ROS Narrative CONST: Denies fever, chills GI: Denies abd pain, nausea, loss of bowel control : Denies loss of bladder control, hematuria MS: + back pain, myalgias.? Denies arthralgia SKIN: Denies color change, swelling NEURO: Denies numbness, paresthesias, weakness, saddle anesthesias PFSH PFSH Social History Smoking status: Never smoker Little interest or pleasure in doing things: not at all Feeling down, depressed, or hopeless: not at all Exam Narrative Exam Narrative: Vital signs noted Nurses notes reviewed CONST: Nontoxic, well appearing, well nourished, in no distress.? No diaphoresis.?? HENT: normocephalic, atraumatic, CV: 2+ palpable DP pulses bilat GI: Gravid abdomen, soft, nontender : no CVA tenderness MS: + spinous process and paraspinal muscle tenderness in the L3 region. No discoloration, crepitus, edema, step-off.? No tenderness over the SI joint.? There is no discoloration, edema, crepitus, instability, step off.? Straight leg raises were negative bilaterally.? No foot drop.? Steady gait, normal station.? DF, PF, hallux DF equal and strong bilat NEURO: sensory intact, 2+ Patella and Achilles reflexes SKIN: no rash, erythema, warm, dry PSYCHIATRIC: normal mood, affect Constitutional Vital Signs, click to edit/add: Last Vital Signs Temp 99.4 F 04/25/24 22:04 Pulse 90 04/25/24 22:04 Resp 18 04/25/24 22:04 BP 117/78 04/25/24 22:04 Pulse Ox 100 04/25/24 22:04 O2 Del Method Room Air 04/25/24 17:13 Course Vital Signs Vital signs: Vital Signs Temperature 98.9 F 04/25/24 17:13 Pulse Rate 80 04/25/24 17:13 Respiratory Rate 16 04/25/24 17:13 Blood Pressure 116/83 04/25/24 17:13 Pulse Oximetry 100 04/25/24 17:13 Oxygen Delivery Method Room Air 04/25/24 17:13 Temperature 99.4 F 04/25/24 22:04 Pulse Rate 90 04/25/24 22:04 Respiratory Rate 18 04/25/24 22:04 Blood Pressure 117/78 04/25/24 22:04 Pulse Oximetry 100 04/25/24 22:04 Oxygen Delivery Method Room Air 04/25/24 17:13 Medical Decision Making MDM Narrative Medical decision making narrative: Is a 28-year-old female who presented to the emergency department with concerns about her and her back. States she had a fall earlier this morning. Did not have any pain initially. Pain developed several hours later as well as, bubbling, sensation in her abdomen. States she is with twins. Denies any contractions, vaginal bleeding. On arrival, afebrile, vital signs are stable. On exam, nontoxic, well-appearing patient in no distress. Abdomen is gravid with no appreciable tenderness. She does have some tenderness to her back. No focal findings, red flags in history or physical exam that would give concern for cauda equina Urinalysis was unremarkable Ultrasound imaging, per radiologist reveals viable twins IUP Patient improved with treatment including Lidoderm patch and Tylenol Favor low back injury, concern Fracture less likely as she did not have acute pain. No crepitus, step off, instability. No focal neurologic deficits, red flags. Does not want xray as she is Cauda equina less likely based on history and physical exam History and Record Review Additional records reviewed: No prior records Additional Tests and Interventions Diagnostic testing considered but not performed: X-rays. Patient . Low concern for lumbar sacral fracture based on pain level, delay in onset, no concerning findings on exam Re-Evaluation Patient states Tylenol Lidoderm patches have overall helped her pain. Discussed with patient results, plan, and disposition. She is agreeable plan for Disposition ? The patient was discharged. Prescriptions sent to pharmacy: Lidoderm patches Plan: Patient will be discharged to home. Condition at time of disposition: stable ? Advised to follow up with primary provider. Advised to return for any worsening and/or development of new, concerning signs or symptoms PLEASE NOTE: Portions of the medical record may have been produced using electronic director of public relations and may contain errors with respect to translation of words which may not have been identified prior to finalization of the chart. Medical Records Medical records reviewed: Yes I reviewed the patient's medical records Lab Data Lab results reviewed: Yes I reviewed the patient's lab results Labs: Lab Results 04/25/24 Range/Units 18:00 Urine Color Lt. yellow (YELLOW) Urine Clarity Sl cloudy (CLEAR) Urine pH 6.5 (5.0-9.0) Ur Specific Industry 1.020 (1.005-1.025) Urine Protein Negative (NEG/TRACE) mg/dL Urine Glucose (UA) Negative (NEGATIVE) mg/dL Urine Ketones Negative (NEGATIVE) mg/dL Urine Occult Blood Negative (NEGATIVE) Urine Nitrite Negative (NEGATIVE) Urine Bilirubin Negative (NEGATIVE) Urine Urobilinogen 0.2 (0.2-1.0) EU/dL Ur Leukocyte Esterase Negative (NEGATIVE) Urine RBC 0-2 (0-2) #/HPF Urine WBC None seen (NONE SEEN) #/HPF Ur Squamous Epith Cells Few A (NONE/RARE) #/LPF Urine Crystals Seen A (None Seen) #/HPF Amorphous Sediment Few Urine Bacteria Small A (NONE SEEN) #/HPF Urine Casts None seen (NONE SEEN) #/LPF Urine Mucus Small A (NONE SEEN) Ur Culture Indicated? Yes Imaging Data US - abdomen: Radiologist's impression: ITS Impressions Ultrasound 04/25/24 17:33 IMPRESSION: 1. Viable Twin fetus IUP Twin A: 2. AUA Estimated Gestational Age by US: 18 weeks 0 days +/- 1 week 2 days by ultrasound. 3. Estimated due date by AUA: September 26, 2024. These values correlate with the previously determined dating parameters. 4. Estimated weight 212 g approximately 35% Twin B: 2. AUA Estimated Gestational Age by US: 18 weeks 1 day +/- 1 week 2 days. by ultrasound. 3. Estimated due date by AUA: 09/25/2024. These values correlate with the previously determined dating parameters 4. Estimated weight 225 g approximately 53% Electronically authenticated by: TANNER GARSIA Date: 04/25/2024 21:40 Ultrasound 04/25/24 17:58 IMPRESSION: 1. Viable Twin fetus IUP Twin A: 2. AUA Estimated Gestational Age by US: 18 weeks 0 days +/- 1 week 2 days by ultrasound. 3. Estimated due date by AUA: September 26, 2024. These values correlate with the previously determined dating parameters. 4. Estimated weight 212 g approximately 35% Twin B: 2. AUA Estimated Gestational Age by US: 18 weeks 1 day +/- 1 week 2 days. by ultrasound. 3. Estimated due date by AUA: 09/25/2024. These values correlate with the previously determined dating parameters 4. Estimated weight 225 g approximately 53% Electronically authenticated by: TANNER GARSIA Date: 04/25/2024 21:40 Discharge Plan Discharge Chief Complaint: Back Pain/Injury Clinical Impression: Miscarriage, threatened, early Back injury Qualifiers: Encounter type: initial encounter Qualified Code(s): S39.92XA - Unspecified injury of lower back, initial encounter Patient Disposition: Home, Self-Care Time of Disposition Decision: 21:57 Condition: Good Mode of Transportation: Private Vehicle Prescriptions / Home Meds: New lidocaine [Lidoderm] 5 % adhesive patch,medicated 1 patch topical DAILY Qty: 15 0RF Rx Instructions: leave on most painful area for up to 12 hrs Print Language: Thai Instructions: Threatened Miscarriage (ED), Back Pain (ED) Referrals: Physician,Non-Staff, MD [Primary Care Provider] - 1 week Discharge Date/Time: 04/25/24 22:11
[2024-04-25] MEDS: LIDOCAINE 5% PATCH 1 PATCH TOPICAL (17:54)
--- NOTE | 2024-04-25 17:58 | US_ITS ---
[address] [address] Patient Name: MELI ALVAREZ MRN: [id number] date: 1995 Sex: F Assigned Patient Location: ER Current Patient Location: ED.MAIN Accession/Order Number: [id number] Exam Date: 04/25/2024 18:06 Report Date: 04/25/2024 21:40 At the request of: CHANDRA JONES Procedure: US OB >= 14 wk fetus add gest US PELVIS: OB LESS THAN 14 WEEKS HISTORY: 28-year-old female who is who fell. Patient is with twins. presents for US evaluation. TECHNIQUE: Multiple sonographic images are performed of the pelvis using grayscale and color Doppler with both transabdominal and transvaginal probes. COMPARISON: None. FINDINGS: UTERUS: Gravid with twin . Amniotic membrane visualized. FETUS A: Position: Transverse head maternal right Heart Rate: 151 bpm. Measurements: BPD: 4.1 cm = 18 weeks, 2 days. HC: 14.9 cm = 18 weeks, 0 days. AC: 12.0 cm =17 weeks, 5 days. FL: 2.6 cm = 17 weeks, 6 days. Estimated weight: 212 g +/- 30 1.8 g. (7 ounces +/- 1 ounce) 35% FETUS B: Position: Transverse head maternal left. Heart Rate: 152 bpm. Measurements: BPD: 4.1 cm = 18 weeks, 3 days. HC: 15.1 cm = 18 weeks, 1 days. AC: 13.0 cm =18 weeks, 4 days. FL: 2.5 cm = 17 weeks, 4 days. Estimated weight: 225 g +/- 33.7 g (8 ounces +/- 1 ounce) 53% MATERNAL: Ovaries: Not visualized due to bowel gas and gravid uterus. VANESSA: Within normal limits. Free fluid: None. US/US OB >= 14 wk fetus add gest IMPRESSION: 1. Viable Twin fetus IUP Twin A: 2. AUA Estimated Gestational Age by US: 18 weeks 0 days +/- 1 week 2 days by ultrasound. 3. Estimated due date by AUA: September 26, 2024. These values correlate with the previously determined dating parameters. 4. Estimated weight 212 g approximately 35% Twin B: 2. AUA Estimated Gestational Age by US: 18 weeks 1 day +/- 1 week 2 days. by ultrasound. 3. Estimated due date by AUA: 09/25/2024. These values correlate with the previously determined dating parameters 4. Estimated weight 225 g approximately 53% Electronically authenticated by: TANNER GARSIA Date: 04/25/2024 21:40
[2024-04-25 18:10] LABS: Bilirubin Urine NEGATIVE (NEGATIVE); Blood Urine NEGATIVE (NEGATIVE); Clarity Urine SL CLOUDY (CLEAR); Color Urine LT. YELLOW (YELLOW); Glucose Urine UA NEGATIVE (NEGATIVE); Ketones Urine NEGATIVE (NEGATIVE); Leukocyte Esterase Urine NEGATIVE (NEGATIVE); Nitrite Urine NEGATIVE (NEGATIVE); Protein Urine NEGATIVE (NEG/TRACE); Urobilinogen Urine 0.2 EU/dL (0.2-1.0); pH Urine 6.5 (5.0-9.0)
[2024-04-25 18:22] LABS: Amorphous Sediment Urine FEW; Bacteria Urine SMALL #/HPF (NONE SEEN); Cast Seen? NONE SEEN #/LPF (NONE SEEN); Crystals Seen? Seen #/HPF (None Seen); Mucus Urine SMALL (NONE SEEN); RBC Urine 0-2 #/HPF (0-2); Squamous Epithelial Cell Urine FEW #/LPF (NONE/RARE); WBC Urine NONE SEEN #/HPF (NONE SEEN)
[2024-04-25 18:23] LABS: Urine Culture Indicated YES
[2024-04-25 18:59] VITALS: BP 117/76; PULSE 88; O2SAT 100
--- NOTE | 2024-04-25 19:13 | PC.NURSE ---
i walked into this patient to find this patient awake and alert sitting upright on the bed, i introduced myself to this patient. i informed the patient that we are waiting on the ultra sound results to come back. this patient voices no concerns and shows no signs of distress
--- NOTE | 2024-04-25 20:29 | PC.NURSE ---
patient updated still waiting on the ultra sounds results. this patient voices no concerns and shows no signs of distress
--- NOTE | 2024-04-25 21:41 | PC.NURSE ---
patient updated her ultra sound is being looked at now
[2024-04-25 22:04] VITALS: BP 117/78; PULSE 90; TEMP 37.4; O2SAT 100
--- NOTE | 2024-04-25 22:10 | PC.NURSE ---
i gave this patient verbal and paper discharge orders and this patient voices yes to understanding these. at time of discharge this patient voces no concerns and shows no signs of distress
== END 2024-04-25 22:11 | disposition home or self-care (01) ==
PROVIDERS: Physician Assistant; Emergency Provider Emergency Medicine
DX: O9A.212 Injury, poisoning and certain other consequences of external causes complicating pregnancy, second trimester (principal); S39.92XA Unspecified injury of lower back, initial encounter; O30.002 Twin pregnancy, unspecified number of placenta and unspecified number of amniotic sacs, second trimester; Z3A.18 18 weeks gestation of pregnancy; W01.0XXA Fall on same level from slipping, tripping and stumbling without subsequent striking against object, initial encounter; O20.0 Threatened abortion
CPT/HCPCS: 76810; 76815; 81001; 87086; 87150; 87186; 99285